=== PATIENT | male | born 1955 | race Caucasian/White ===

== ENCOUNTER 2021-02-23 13:14 | Emergency (ER) | payer MEDICAID ==
[~2021-02-23] VITALS: Ht 177.8 cm; Wt 86.4 kg
[2021-02-23 14:58] VITALS: BP 136/85
--- NOTE | 2021-02-23 15:25 | RAD ---
EXAM: Right foot, 3 views. HISTORY: Pain. COMPARISON: None. FINDINGS: 3 views of the right foot are obtained. There is mild degenerative spurring involving the f irst metatarsal phalangeal joint. No fracture is seen. There are vascular calcifications. IMPRESSION: 1. No acute osseous finding. 2. Mild first metatarsal phalangeal joint osteoarthritis. Electronically signed by: Lulu Bangura MD (02/23/2021 3:22 PM) [id number]
[2021-02-23] MEDS ORDERED: HYDROcodone/APAP 5/325MG 1 TAB TABLET PO ONE (16:00)
--- NOTE | 2021-02-23 16:07 | ED.ADGEN ---
Past Medical History Past Medical History: Dementia, Hypertension Past Surgical History: Other Additional Past Surgical Histo: BACK SURGERY Smoking Status: Never Smoker Alcohol Use: Occasionally General Adult EDM: Chief Complaint: MECHANICAL FALL HPI: HPI: Patient is a 66 year old male who presents emergency department with complaints of right foot and right great toe pain after falling down 5-7 stairs last night. Patient reports there is abrasions to his left great toe and left foot. He denies any LOC, head, back, or neck pain. Patient denies any nausea, vomiting. Numbness, tingling, or weakness. He currently rates his pain a 7 out of 10 on the pain scale, he denies any alleviating factors. Patient states his last tetanus shot was less than 5 years ago. Review of Systems: Review of Systems: Complete ROS is negative unless otherwise noted in HPI. Current Medications: Current Medications Medications (Trade) Dose Ordered Sig/Lora Start Time Stop Time Status Last Admin Dose Admin Acetaminophen/ Hydrocodone Bitart (Lortab 5/325) 1 tab 1X ONCE 02/23/21 16:00 02/23/21 16:01 DC 02/23/21 16:04 1 TAB Allergies: Allergies: Allergies Coded Allergies Type Severity Reaction Last Updated Verified No Known Drug Allergies 02/23/21 No Physical Exam: PE: See Above Constitutional: Well developed, well nourished, no acute distress, non-toxic appearance. [] HENT: Normocephalic, atraumatic, bilateral external ears normal, nose normal. [] Eyes: PERRLA, EOMI, conjunctiva normal, no discharge. [] Neck: Normal range of motion, no stridor. [] Cardiovascular:Heart rate regular rhythm Lungs & Thorax: Respirations even and unlabored, no retractions, no respiratory distress Abdomen: soft, no tenderness Back: No bony tenderness, no paraspinal tenderness Skin: Warm, dry, no erythema, no rash; scabbed abrasions to medial right Extremities: Right foot: Tenderness to palpation of the great toe and the first metatarsal, no crepitus, no deformity, 1+ edema, sensation intact, no cyanosis, ROM intact Neurologic: Alert and oriented X 3, normal motor normal sensory, no focal deficits noted. [] Psychologic: Affect normal, judgement normal, mood normal. [] Current Patient Data: Vital Signs: Vital Signs Date Time Temp Pulse Resp B/P (MAP) Pulse Ox O2 Delivery O2 Flow Rate FiO2 02/23/21 14:58 98.3 76 16 136/85 (102) 99 Room Air 98.3 EKG: EKG: [] Heart Score: C/O Chest Pain: No Risk Factors: Risk Factors: DM, Current or recent (<one month) smoker, HTN, HLP, family history of CAD, obesity. Risk Scores: Score 0 - 3: 2.5% MACE over next 6 weeks - Discharge Home Score 4 - 6: 20.3% MACE over next 6 weeks - Admit for Clinical Observation Score 7 - 10: 72.7% MACE over next 6 weeks - Early Invasive Strategies Radiology/Procedures: Radiology/Procedures: PROCEDURE: FOOT RIGHT 3V EXAM: Right foot, 3 views. HISTORY: Pain. COMPARISON: None. FINDINGS: 3 views of the right foot are obtained. There is mild degenerative spurring involving the first metatarsal phalangeal joint. No fracture is seen. There are vascular calcifications. IMPRESSION: 1. No acute osseous finding. 2. Mild first metatarsal phalangeal joint osteoarthritis. Electronically signed by: Lulu Bangura MD (02/23/2021 3:22 PM) [id number] Course & Med Decision Making: Course & Med Decision Making Pertinent Labs and Imaging studies reviewed. (See chart for details) [] Heaven Disclaimer: Heaven Disclaimer: This electronic medical record was generated, in whole or in part, using a voice recognition dictation system. Departure Departure Impression: Primary Impression: Contusion of right foot including toes Additional Impression: Abrasion, right foot, initial encounter Disposition: HOME / SELF CARE / HOMELESS Condition: STABLE Referrals: SATYA TYLER (PCP) Patient Instructions: Abrasion, [id number], Foot Contusion, [id number] Additional Instructions: Tylenol or ibuprofen as needed for pain recommend application of ice, elevation, and rest of affected extremity. Cleanse your abrasions and apply antibiotic ointment to them twice daily. Follow-up with your primary care doctor next week. Return to the ER if your symptoms worsen. Problem Qualifiers Primary Impression: Contusion of right foot including toes Encounter type: initial encounter Qualified Codes: S90.31XA - Contusion of right foot, initial encounter; S90.121A - Contusion of right lesser toe(s) without damage to nail, initial encounter KIRA MORE SOLUTION DESIGN ENGINEER February 23, 2021 16:07
== END 2021-02-23 16:32 | disposition home or self-care (01) ==
LOC: ER 13:14 → EDBD 13:14 → ER 16:32
DX: S90.31XA Contusion of right foot, initial encounter (principal); S90.121A Contusion of right lesser toe(s) without damage to nail, initial encounter; F03.90 Unspecified dementia, unspecified severity, without behavioral disturbance, psychotic disturbance, mood disturbance, and anxiety; I10 Essential (primary) hypertension; W10.8XXA Fall (on) (from) other stairs and steps, initial encounter; Y93.89 Activity, other specified; Y92.89 Other specified places as the place of occurrence of the external cause; Y99.8 Other external cause status
CPT/HCPCS: 73630; 99284

== ENCOUNTER 2021-03-07 21:50 | Emergency (ER) | payer MEDICAID ==
[~2021-03-07] VITALS: Ht 177.8 cm; Wt 85.9 kg
--- NOTE | 2021-03-07 23:12 | ED.ADGEN ---
Past Medical History Past Medical History: Dementia, Hypertension Past Surgical History: Other Additional Past Surgical Histo: BACK SURGERY Smoking Status: Never Smoker Alcohol Use: Occasionally General Adult EDM: Chief Complaint: NAUSEA/VOMITING/DIARRHEA HPI: HPI: Patient is a 65 year old male coming in for multiple complaints. Patient states he fell off of a bed of a pickup truck yesterday while trying to climb onto it. States he landed on his right side. Denies having abdominal pain, na usea and vomiting, fever of 102.4 by forehead. Patient got his second [place] vaccine 1 week ago and is concerned that he has Covid. Also request to be tested for influenza Review of Systems: Review of Systems: All other systems within normal limits except for as noted in the HPI Current Medications: Current Medications Medications (Trade) Dose Ordered Sig/Lora Start Time Stop Time Status Last Admin Dose Admin Info (CONTRAST GIVEN -- Rx MONITORING) 1 each PRN DAILY PRN 03/08/21 01:00 03/10/21 00:59 Iohexol (Omnipaque 300 Mg/ml) 75 ml 1X ONCE 03/08/21 01:30 03/08/21 01:31 DC Ondansetron HCl (Zofran) 4 mg 1X ONCE 03/07/21 23:30 03/07/21 23:31 DC Sodium Chloride 1,000 ml @ 1,000 mls/hr 1X ONCE 03/07/21 23:30 03/08/21 00:29 DC 03/07/21 23:52 1,000 MLS/HR Allergies: Allergies: Allergies Coded Allergies Type Severity Reaction Last Updated Verified No Known Drug Allergies 02/23/21 No Physical Exam: PE: Constitutional: Well developed, well nourished, no acute distress, non-toxic appearance. [] HENT: Normocephalic, atraumatic, bilateral external ears normal, nose normal. [] Eyes: PERRLA, conjunctiva normal, no discharge. [] Neck: No rigidity, supple, no stridor. No tenderness, no step-off or deformity [] Cardiovascular: Regular rate and rhythm, brisk cap refill [] Lungs & Thorax: Non labored symmetric respirations, no tachypnea or respiratory distress [] Abdomen: Soft, nondistended, generalized tenderness palpation no guarding or rebound. Skin: Warm, dry, no erythema, no rash. [] Back: Unremarkable Extremities: No deformities, range of motion grossly intact, no lower extremity edema [] Neurologic: Alert and oriented X 3, no focal deficits noted. [] Psychologic: Affect normal, judgement normal, mood normal. [] Current Patient Data: Labs: Laboratory Tests Test 03/07/21 23:40 03/07/21 23:50 03/08/21 00:55 Influenza Type A Antigen Negative (NEGATIVE) Influenza Type B Antigen Negative (NEGATIVE) SARS-CoV-2 Antigen (Rapid) Negative (NEGATIVE) White Blood Count 6.3 x10^3/uL (4.0-11.0) Red Blood Count 4.69 x10^6/uL (4.30-5.70) Hemoglobin 14.3 g/dL (13.0-17.5) Hematocrit 41.7 % (39.0-53.0) Mean Corpuscular Volume 89 fL (79-100) Mean Corpuscular Hemoglobin 31 pg (25-35) Mean Corpuscular Hemoglobin Concent 34 g/dL (31-37) Red Cell Distribution Width 13.9 % (11.5-14.5) Platelet Count 185 x10^3/uL (140-400) Neutrophils (%) (Auto) 62 % (31-73) Lymphocytes (%) (Auto) 21 % (24-48) L Monocytes (%) (Auto) 15 % (0-9) H Eosinophils (%) (Auto) 1 % (0-3) Basophils (%) (Auto) 1 % (0-3) Neutrophils # (Auto) 3.9 x10^3/uL (1.8-7.7) Lymphocytes # (Auto) 1.3 x10^3/uL (1.0-4.8) Monocytes # (Auto) 0.9 x10^3/uL (0.0-1.1) Eosinophils # (Auto) 0.1 x10^3/uL (0.0-0.7) Basophils # (Auto) 0.0 x10^3/uL (0.0-0.2) Sodium Level 133 mmol/L (136-145) L Potassium Level 4.3 mmol/L (3.5-5.1) Chloride Level 98 mmol/L (98-107) Carbon Dioxide Level 25 mmol/L (21-32) Anion Gap 10 (6-14) Blood Urea Nitrogen 13 mg/dL (8-26) Creatinine 1.1 mg/dL (0.7-1.3) Estimated GFR (Cockcroft-Gault) 67.6 BUN/Creatinine Ratio 12 (6-20) Glucose Level 109 mg/dL (70-99) H Calcium Level 9.4 mg/dL (8.5-10.1) Total Bilirubin 0.6 mg/dL (0.2-1.0) Aspartate Amino Transferase (AST) 33 U/L (15-37) Alanine Aminotransferase (ALT) 38 U/L (16-63) Alkaline Phosphatase 149 U/L (46-116) H Troponin I Quantitative < 0.017 ng/mL (0.000-0.055) Total Protein 7.1 g/dL (6.4-8.2) Albumin 3.7 g/dL (3.4-5.0) Albumin/Globulin Ratio 1.1 (1.0-1.7) Lipase 83 U/L (73-393) Urine Collection Type Unknown Urine Color Yellow Urine Clarity Clear Urine pH 6.0 (<5.0-8.0) Urine Specific Ragan 1.010 (1.000-1.030) Urine Protein Negative mg/dL (NEG-TRACE) Urine Glucose (UA) Negative mg/dL (NEG) Urine Ketones (Stick) Negative mg/dL (NEG) Urine Blood Trace (NEG) Urine Nitrite Negative (NEG) Urine Bilirubin Negative (NEG) Urine Urobilinogen Dipstick 0.2 mg/dL (0.2 mg/dL) Urine Leukocyte Esterase Negative (NEG) Urine RBC Rare /HPF (0-2) Urine WBC 0 /HPF (0-4) Urine Squamous Epithelial Cells Occ /LPF Urine Bacteria 0 /HPF (0-FEW) Laboratory Tests 03/07/21 23:50 Laboratory Tests 03/07/21 23:50 Vital Signs: Vital Signs Date Time Temp Pulse Resp B/P (MAP) Pulse Ox O2 Delivery O2 Flow Rate FiO2 03/08/21 00:05 92 22 99/64 (76) 98 Room Air 03/07/21 22:35 99.1 99.1 EKG: EKG: Sinus rhythm, heart rate 98 bpm, left axis deviation, no ST elevation or depression, no ectopy. Normal intervals [] Heart Score: C/O Chest Pain: No Risk Factors: Risk Factors: DM, Current or recent (<one month) smoker, HTN, HLP, family history of CAD, obesity. Risk Scores: Score 0 - 3: 2.5% MACE over next 6 weeks - Discharge Home Score 4 - 6: 20.3% MACE over next 6 weeks - Admit for Clinical Observation Score 7 - 10: 72.7% MACE over next 6 weeks - Early Invasive Strategies Radiology/Procedures: Radiology/Procedures: [facility] [address] [place] [address] IMAGING REPORT Signed PATIENT: LENNIE LINK ACCOUNT: [id number] : 1955 LOCATION: ER AGE: 65 SEX: M EXAM STATUS: REG ER ORD. PHYSICIAN: MARIA E HODGE MD REASON: head injury PROCEDURE: CT HEAD AND CERVICAL SPINE WO EXAM: CT HEAD WITHOUT IV CONTRAST CLINICAL HISTORY: Reason: head injury / Spl. Instructions: / History: COMPARISON: None. TECHNIQUE: Routine CT of the head without contrast. Soft tissues and bone windows were reviewed. PQRS compliance statement - One or more of the following individualized dose reduction techniques were utilized for this study: 1. Automated exposure control 2. Adjustment of the mA and/or kV according to patient size 3. Use of iterative reconstruction technique FINDINGS: There is no evidence of hemorrhage, mass or extra-axial fluid collection. Gomez-white differentiation is maintained with no evidence of edema. Subcortical, periventricular as well as deep white matter foci of hypoattenuation likely changes of chronic small vessel disease. There is no mass effect or shift of the intracranial structures. The ventricles, basilar cisterns and cortical sulci are normal in size and configuration for the patients stated age. The cerebellum and brainstem are unremarkable. The calvarium demonstrates no evidence of fracture or focal lesion. There is normal aeration of the visualized paranasal sinuses and mastoid air cells. The visualized portions of the orbits are normal. IMPRESSION: No evidence for acute intracranial process. White matter changes likely chronic small vessel disease. EXAM: CT CERVICAL SPINE WITHOUT IV CONTRAST CLINICAL HISTORY: Reason: head injury / Spl. Instructions: / History: COMPARISON: None available. TECHNIQUE: Helical CT of the cervical spine was performed. Axial, coronal and sagittal reformatted images were also performed. PQRS compliance statement - One or more of the following individualized dose reduction techniques were utilized for this study: 1. Automated exposure control 2. Adjustment of the mA and/or kV according to patient size 3. Use of iterative reconstruction technique FINDINGS: Trace height loss of the superior endplate of C5 may represent physiologic wedging or age-indeterminate compression fracture. This can be correlated with patient's symptoms and if further imaging is clinically indicated, MRI would provide additional details. Mild C2-3 disc height loss. Mild atlantodental degenerative changes are seen. Mild C6-7 disc height loss. Straightening of the normal cervical lordosis. No spondylolisthesis. Maxillary sinus thickening may be seen with sinusitis. IMPRESSION: 1. Trace height loss of the superior endplate of C5 may represent physiologic wedging or age-indeterminate compression fracture. If further imaging is clinically indicated, MRI may provide additional details. 2. Multilevel spondylosis as above 3. Maxillary sinus thickening may be seen with sinusitis.. Electronically signed by: Carl Ross MD (03/08/2021 1:10 AM) [facility] DICTATED and SIGNED BY: CARL ROSS MD DATE: 03/08/21 [id number] [][facility] [address] [place] [address] IMAGING REPORT Signed PATIENT: LENNIE LINK ACCOUNT: [id number] : 1955 LOCATION: ER AGE: 65 SEX: M EXAM STATUS: REG ER ORD. PHYSICIAN: MARIA E HODGE MD REASON: head injury PROCEDURE: CT CHEST ABD PELVIS W/CONTRAST EXAM: CT Chest, Abdomen and Pelvis with IV contrast CLINICAL HISTORY: Reason: head injury / Spl. Instructions: / History: COMPARISON: None. TECHNIQUE: Helical CT of the chest, abdomen and pelvis was performed following the administration of intravenous contrast. Axial, coronal and sagittal reformatted images were generated. ---PQRS compliance statement - One or more of the following individualized dose reduction techniques were utilized for this study: 1. Automated exposure control 2. Adjustment of the mA and/or kV according to patient size 3. Use of iterative reconstruction technique--- FINDINGS: Chest: Thyroid is unremarkable. Prominent subcarinal lymph node measures 1.6 x 1.1 cm. No mediastinal or hilar lymphadenopathy. Heart is not enlarged. Coronary calcifications are seen. No pericardial effusion. Thickening of the distal esophagus. No axillary lymphadenopathy. 12 mm left lower lobe lung nodule is seen. Linear and bandlike opacities or lobes likely scarring/atelectasis. A 1 cm right lower lobe lung nodule (series 2 image 39) is seen. No pleural effusion or pneumothorax. Abdomen and Pelvis: No focal liver lesion. Hepatic hypoattenuation likely fatty liver. Gallbladder is normal. No biliary duct dilatation. Pancreas is unremarkable. Spleen is normal in appearance. Adrenal glands are unremarkable. Symmetric nephrograms. No focal renal lesion. No hydronephrosis. No hydroureter. Bladder diverticula are seen. Aorta is normal in caliber with intermittent atherosclerotic calcifications. A 1.4 x 1.1 cm gastrohepatic ligament lymph node (series 2 image 55) is seen. Prominent right upper quadrant lymph nodes are seen. No abdominal or pelvic ascites. Appendix is normal. Moderate colonic stool content is seen. No small or large bowel dilatation. No bowel obstruction. Bones: Degenerative changes of spine are seen. Multiple old right rib fractures are seen. Mild height loss of T11 and T12 vertebral bodies, age-indeterminate compression fractures. IMPRESSION: 1. No evidence for acute thoracic, abdominal or pelvic trauma. 2. Distal esophageal thickening may be seen with esophagitis although underlying mass is not excluded. This can be further assessed by endoscopy. 3. Mildly enlarged mediastinal and upper abdominal lymph nodes, likely reactive or metastatic. 4. Mild height loss of T11 and T12 vertebral bodies, age-indeterminate compression fractures. 5. Bilateral lung nodules measuring up to 12 mm in the left lower lobe. Recommend correlation with prior imaging if available, otherwise further evaluation with PET scan or short interval follow-up CT in 6-12 weeks is recommended. 6. Hepatic hypoattenuation likely fatty liver. 7. Bladder diverticula are seen. Electronically signed by: Carl Ross MD (03/08/2021 1:19 AM) [facility] DICTATED and SIGNED BY: CARL ROSS MD DATE: 03/08/[id number] 0 Course & Med Decision Making: Course & Med Decision Making Pertinent Labs and Imaging studies reviewed. (See chart for details) [] Heaven Disclaimer: Heaven Disclaimer: This electronic medical record was generated, in whole or in part, using a voice recognition dictation system. Departure Departure Impression: Primary Impression: Nausea & vomiting Disposition: 01 HOME / SELF CARE / HOMELESS Condition: STABLE Referrals: SATYA TYLER (PCP) Additional Instructions: Follow-up with your primary care provider for incidental findings of lung nodules for repeat imaging. You have been tested for or diagnosed with COVID-19. It is an infection caused by a new type of coronavirus. COVID-19 will cause cold-like or mild flu symptoms in most. It can cause more severe symptoms like problems breathing in some. There is no treatment for COVID-19. The body will clear the infection over time. Self-care will help to ease discomfort. Steps to Take: Self-Care Rest as needed. Healthy habits may help you feel better. Steps include: Choose healthy foods including fruits and vegetables. Drink water throughout the day. Get plenty of sleep each night. If you smoke, try to quit. It may ease breathing. Avoid alcohol. Keep Others Healthy The virus can spread to others. Droplets are released every time you sneeze or cough. The droplets can get into the mouth, nose, or eyes of people near you and lead to infection. To lower the chances of spreading COVID-19 to others: Stay at home until your doctor has said it is safe to leave. If you tested positive this will mean staying isolated until both of the following are true: At least 7 days have passed since the start of illness. You are free of fever for at least 72 hours without the use of medicine. During this time: - Avoid public areas, events, or transportation. Do not return to work or school until your doctor has said it is safe to do so. - Call ahead if you need to go to a medical center. Let them know you may have COVID-19. It will help them guide you where to go. They may also ask you to wear a facemask when you come to the office. - If you call for emergency medical services, let them know you may have COVID- 19. While at home: - Try to avoid close contact with others. Stay about 6 feet away. - If possible, spend most of your time in a separate room from others. - Use a face mask if you will be in close contact with others such as sharing a room or vehicle. - Have someone wipe down common surfaces in the home. Use household senior applications developer every day on areas like doorknobs, counters, or sinks. - Cough or sneeze into a tissue. Throw the tissue away right after use. If a tissue is not available, cough or sneeze into your elbow. - Wash your hands often. Wash them after sneezing or coughing. Use soap and water and wash for at least 20 seconds. Alcohol based hand frame cleaner can be used if soap and water is not available. - Do not prepare food for others. Avoid sharing personal items like forks, spoons, or toothbrushes. - Avoid close contact with pets while you are sick. There is no evidence of the virus passing to pets. This is a safety step until more is known about this virus. Isolation can be frustrating. Social interaction can help. Keep in touch with friends and family through phone and tech options. You can still interact with others in your home, just keep a safe distance of about 6 feet. Follow-up: Your doctors office will check in with you to see if there are any changes in your health. You may be asked to keep track of symptoms to share with them. They will also let you know when you are clear to be in public again. Problems to Look Out For: Contact your doctor if your recovery is not going as you expect. Get emergency care if you have problems such as: - Trouble breathing - Nonstop chest pain or pressure - Changes in awareness, confusion, or problems waking - Lips or face have bluish color - Worsening of symptoms If you think you have an emergency, call for emergency medical services right away. As taken from [facility] Ondansetron (ONDANSETRON ODT) 4 Mg Tab.rapdis 1 TAB PO PRN Q6-8HRS PRN for NAUSEA for 3 Days, #10 TAB Prov: MARIA E HODGE MD 03/08/21 MARIA E HODGE MD Mar 07, 2021 23:12
[2021-03-07] MEDS ORDERED: ONDANSETRON PF 4 MG/2 ML VIAL. IVP ONE (23:30)
[2021-03-07] MEDS ORDERED: IV NORMAL SALINE 1000ML BAG 1,000 ML IV ONE (23:30)
[2021-03-08 00:01] LABS: BASO % 1 % (0-3); EOS # 0.1 x10^3/uL (0.0-0.7); EOS % 1 % (0-3); HEMATOCRIT 41.7 % (39.0-53.0); HEMOGLOBIN 14.3 g/dL (13.0-17.5); LYMPH # 1.3 x10^3/uL (1.0-4.8); LYMPH % 21 % (24-48); MEAN CORPUSCULAR HEMOGLOBIN 31 pg (25-35); MEAN CORPUSCULAR HGB CONC 34 g/dL (31-37); MEAN CORPUSCULAR VOLUME 89 fL (79-100); MONO # 0.9 x10^3/uL (0.0-1.1); MONO % 15 % (0-9); NEUT # 3.9 x10^3/uL (1.8-7.7); NEUT % 62 % (31-73); PLATELET COUNT 185 x10^3/uL (140-400); RED BLOOD COUNT 4.69 x10^6/uL (4.30-5.70); RED CELL DISTRIBUTION WIDTH 13.9 % (11.5-14.5); WHITE BLOOD COUNT 6.3 x10^3/uL (4.0-11.0)
[2021-03-08 00:02] LABS: INFLUENZA A PATIENT NEGATIVE (NEGATIVE); INFLUENZA B PATIENT NEGATIVE (NEGATIVE)
[2021-03-08 00:12] LABS: CALCIUM 9.4 mg/dL (8.5-10.1); CREATININE 1.1 mg/dL (0.7-1.3); GFR 67.6; POTASSIUM 4.3 mmol/L (3.5-5.1)
[2021-03-08 00:17] LABS: ALBUMIN 3.7 g/dL (3.4-5.0); ALBUMIN/GLOBULIN RATIO 1.1 (1.0-1.7); TOTAL BILIRUBIN 0.6 mg/dL (0.2-1.0); TOTAL PROTEIN 7.1 g/dL (6.4-8.2)
[2021-03-08] MEDS ORDERED: CONTRAST GIVEN. MC PRN (01:00)
[2021-03-08 01:02] LABS: BILIRUBIN,URINE NEGATIVE (NEG); CLARITY,URINE CLEAR; COLOR,URINE YELLOW; NITRITE,URINE NEGATIVE (NEG); PROTEIN,URINE NEGATIVE (NEG-TRACE); UROBILINOGEN,URINE 0.2 mg/dL (0.2 mg/dL)
--- NOTE | 2021-03-08 01:12 | RAD ---
EXAM: CT HEAD WITHOUT IV CONTRAST CLINICAL HISTORY: Reason: head injury / Spl. Instructions: / History: COMPARISON: None. TECHNIQUE: Routine CT of the head without contrast. Soft tissues and bone windows were reviewed. PQRS compliance statement - One or more of the following individualized dose reduction techniques wer e utilized for this study: 1. Automated exposure control 2. Adjustment of the mA and/or kV according to patient size 3. Use of iterative reconstruction technique FINDINGS: There is no evidence of hemorrhage, mass or extra-axial fluid collection. Gomez-white differentiation is maintained with no evidence of edema. Subcortical, periventricular as w ell as deep white matter foci of hypoattenuation likely changes of chronic small vessel disease. There is no mass effect or shift of the intracranial structures. The ventricles, basilar cisterns and cortical sulci are normal in size and configuration for the radha ents stated age. The cerebellum and brainstem are unremarkable. The calvarium demonstrates no evidence of fracture or focal lesion. There is normal aeration of the visualized paranasal sinuses and mastoid air cells. The visualized portions of the orbits are normal. IMPRESSION: No evidence for acute intracranial process. White matter changes likely chronic small vessel disease. EXAM: CT CERVICAL SPINE WITHOUT IV CONTRAST CLINICAL HISTORY: Reason: head injury / Spl. Instructions: / History: COMPARISON: None available. TECHNIQUE: Helical CT of the cervical spine was performed. Axial, coronal and sagittal reformatted im ages were also performed. PQRS compliance statement - One or more of the following individualized dose reduction techniques wer e utilized for this study: 1. Automated exposure control 2. Adjustment of the mA and/or kV according to patient size 3. Use of iterative reconstruction technique FINDINGS: Trace height loss of the superior endplate of C5 may represent physiologic wedging or age-indetermina te compression fracture. This can be correlated with patient's symptoms and if further imaging is cli nically indicated, MRI would provide additional details. Mild C2-3 disc height loss. Mild atlantodental degenerative changes are seen. Mild C6-7 disc height l oss. Straightening of the normal cervical lordosis. No spondylolisthesis. Maxillary sinus thickening may be seen with sinusitis. IMPRESSION: 1. Trace height loss of the superior endplate of C5 may represent physiologic wedging or age-indeter minate compression fracture. If further imaging is clinically indicated, MRI may provide additional d etails. 2. Multilevel spondylosis as above 3. Maxillary sinus thickening may be seen with sinusitis.. Electronically signed by: Carl Mejias MD (03/08/2021 1:10 AM) [facility]
[2021-03-08 01:19] LABS: BACTERIA,URINE 0 /HPF (0-FEW); RBC,URINE RARE /HPF (0-2); WBC,URINE 0 /HPF (0-4)
--- NOTE | 2021-03-08 01:21 | RAD ---
EXAM: CT Chest, Abdomen and Pelvis with IV contrast CLINICAL HISTORY: Reason: head injury / Spl. Instructions: / History: COMPARISON: None. TECHNIQUE: Helical CT of the chest, abdomen and pelvis was performed following the administration of intravenous contrast. Axial, coronal and sagittal reformatted images were generated. ---PQRS compliance statement - One or more of the following individualized dose reduction techniques were utilized for this study: 1. Automated exposure control 2. Adjustment of the mA and/or kV according to patient size 3. Use of iterative reconstruction technique--- FINDINGS: Chest: Thyroid is unremarkable. Prominent subcarinal lymph node measures 1.6 x 1.1 cm. No mediastinal or hil ar lymphadenopathy. Heart is not enlarged. Coronary calcifications are seen. No pericardial effusion. Thickening of the distal esophagus. No axillary lymphadenopathy. 12 mm left lower lobe lung nodule i s seen. Linear and bandlike opacities or lobes likely scarring/atelectasis. A 1 cm right lower lobe l seema nodule (series 2 image 39) is seen. No pleural effusion or pneumothorax. Abdomen and Pelvis: No focal liver lesion. Hepatic hypoattenuation likely fatty liver. Gallbladder is normal. No biliary duct dilatation. Pancreas is unremarkable. Spleen is normal in appearance. Adrenal glands are unremar kable. Symmetric nephrograms. No focal renal lesion. No hydronephrosis. No hydroureter. Bladder diver ticula are seen. Aorta is normal in caliber with intermittent atherosclerotic calcifications. A 1.4 x 1.1 cm gastrohep atic ligament lymph node (series 2 image 55) is seen. Prominent right upper quadrant lymph nodes are seen. No abdominal or pelvic ascites. Appendix is normal. Moderate colonic stool content is seen. No small or large bowel dilatation. No ama wel obstruction. Bones: Degenerative changes of spine are seen. Multiple old right rib fractures are seen. Mild height loss of T11 and T12 vertebral bodies, age-indeterminate compression fractures. IMPRESSION: 1. No evidence for acute thoracic, abdominal or pelvic trauma. 2. Distal esophageal thickening may be seen with esophagitis although underlying mass is not exclude d. This can be further assessed by endoscopy. 3. Mildly enlarged mediastinal and upper abdominal lymph nodes, likely reactive or metastatic. 4. Mild height loss of T11 and T12 vertebral bodies, age-indeterminate compression fractures. 5. Bilateral lung nodules measuring up to 12 mm in the left lower lobe. Recommend correlation with p rior imaging if available, otherwise further evaluation with PET scan or short interval follow-up CT in 6-12 weeks is recommended. 6. Hepatic hypoattenuation likely fatty liver. 7. Bladder diverticula are seen. Electronically signed by: Carl Mejias MD (03/08/2021 1:19 AM) DAXA
[2021-03-08] MEDS ORDERED: IOHEXOL 300 MG/ML 100ML VIAL. IV ONE (01:30)
[2021-03-08] MEDS ORDERED: ONDA4TAB12 PO (01:39)
[2021-03-08 01:50] VITALS: BP 139/81
--- NOTE | 2021-03-08 08:59 | EKG ---
[facility] [address] [place] [address] Test Date: 2021-03-07 Test Time: 23:33:31 Pat Name: LENNIE LINK Department: Room: Gender: M Building [employer] Sales[employer] Retail: : 1955 Requested By: MARIA E HODGE Order Number: [id number] Reading MD: Measurements Intervals [place] Rate: 98 P: 40 MD: 162 QRS: -18 QRSD: 90 T: 24 QT: 344 QTc: 441 Interpretive Statements SINUS RHYTHM LEFTWARD AXIS NO SPECIFIC ECG ABNORMALITIES RI6.01 No previous ECG available for comparison
--- NOTE | 2021-03-09 09:28 | NUR ---
IP: Attempted to contact pt concerning covid test. No answer, left a voicemail to return the call.
--- NOTE | 2021-03-09 09:47 | NUR ---
IP: Pt returned my call. Informed pt of negative covid test. Pt verbalized understanding.
== END 2021-03-08 01:55 | disposition home or self-care (01) ==
LOC: ER 21:50
DX: R11.2 Nausea with vomiting, unspecified (principal); G89.11 Acute pain due to trauma; M54.2 Cervicalgia; R51.9 Headache, unspecified; R10.84 Generalized abdominal pain; I10 Essential (primary) hypertension; F03.90 Unspecified dementia, unspecified severity, without behavioral disturbance, psychotic disturbance, mood disturbance, and anxiety; M47.812 Spondylosis without myelopathy or radiculopathy, cervical region; W06.XXXA Fall from bed, initial encounter; Y93.89 Activity, other specified; Y92.89 Other specified places as the place of occurrence of the external cause; Y99.8 Other external cause status
CPT/HCPCS: 36415; 70450; 71260; 72125; 74177; 80053; 81001; 83690; 84484; 85025; 87426; 87804; 93005; 96360; 99285; J7030; U0003; U0005

== ENCOUNTER 2021-08-26 13:15 | Emergency (ER) | payer MEDICAID ==
[~2021-08-26] VITALS: Ht 177.8 cm; Wt 86.0 kg
[~2021-08-26 13:15] MED LIST: ONDA4TAB12 PO
[2021-08-26 13:41] LABS: BASO % 1 % (0-3); EOS # 0.1 x10^3/uL (0.0-0.7); EOS % 3 % (0-3); HEMATOCRIT 41.9 % (39.0-53.0); HEMOGLOBIN 14.3 g/dL (13.0-17.5); LYMPH % 39 % (24-48); MEAN CORPUSCULAR HEMOGLOBIN 31 pg (25-35); MEAN CORPUSCULAR HGB CONC 34 g/dL (31-37); MEAN CORPUSCULAR VOLUME 92 fL (79-100); MONO # 0.6 x10^3/uL (0.0-1.1); MONO % 11 % (0-9); NEUT # 2.5 x10^3/uL (1.8-7.7); NEUT % 47 % (31-73); PLATELET COUNT 190 x10^3/uL (140-400); RED BLOOD COUNT 4.58 x10^6/uL (4.30-5.70); RED CELL DISTRIBUTION WIDTH 13.5 % (11.5-14.5); WHITE BLOOD COUNT 5.3 x10^3/uL (4.0-11.0)
[2021-08-26] MEDS ORDERED: ONDANSETRON PF 4 MG/2 ML VIAL. IVP ONE ×2 (13:45→18:00)
--- NOTE | 2021-08-26 13:55 | RAD ---
EXAMINATION: Single view of the chest and 2 views of the right hip radiographs COMPARISON: CT chest dated 03/25/2021 INDICATION:66 years, Male, fall from seizure, right hip pain. FINDINGS: Chest: Normal cardiomediastinal silhouette. Left basilar subsegmental atelectasis versus scar. No foc al consolidation. No pleural effusion or pneumothorax. No acute osseous process. Chronic right latera l sixth and seventh rib fractures. Right hip: No acute fracture, dislocation or subluxation. Moderate right hip and sacroiliac joints os teoarthritis. No soft tissue swelling. IMPRESSION: 1. No acute cardiopulmonary process. 2. No acute osseous process in the right hip Electronically signed by: Melissa Bergeron MD (08/26/2021 1:53 PM) [id number]
--- NOTE | 2021-08-26 14:22 | PHYS DOC ---
Past Medical History Past Medical History: Dementia, Hypertension Past Surgical History: Other Additional Past Surgical Histo: unknown Smoking Status: Never Smoker Alcohol Use: None General Adult EDM: Chief Complaint: SEIZURE HPI: HPI: Patient is a 66-year-old male presents to the emergency department via EMS for a reported seizure at work today. EMS unable to report length of seizure or if witnessed. 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 Patient does not remember events afterward until EMS arrived at his work. Patient did not lose continence, reports he has both petit mall and grand mal seizures however he feels as if this may have been a petit mall because he is becoming oriented very quickly. Patient denies dizziness, denies headaches. Denies recent fever or chills. Is unsure if he hit his head or not however denies any head or neck pain. Reports pain to his right hip. Rates his pain a 2-3 out of 10. Patient reports a past medical history of seizures, high blood pressure, hypothyroid, Alzheimer's dementia, chronic body aches and pains. Patient denies chest pain, shortness of breath, chest or nasal congestion, denies recent illnesses, reports his last seizure was May 212020. Patient reports seeing physicians at [facility], reports his neurologist is Dr. Michelet Cao. Patient denies other phy sical complaints or physical concerns. Review of Systems: Review of Systems: 14 body systems of review of systems have been reviewed. See HPI for pertinent positives and negative responses, otherwise all other systems are negative, nonpertinent or noncontributory. Constitutional: Negative except as outlined in HPI above. Skin: Negative except as outlined in HPI above. Eyes: Negative except as outlined in HPI above. HENT: Negative except as outlined in HPI above. Respiratory: Negative except as outlined in HPI above. Cardiovascular: Negative except as outlined in HPI above. GI: Negative except as outlined in HPI above. : Negative except as outlined in HPI above. Musculoskeletal: Negative except as outlined in HPI above. Integument: Negative except as outlined in HPI above. Neurologic: Negative except as outlined in HPI above. Endocrine: Negative except as outlined in HPI above. Lymphatic: Negative except as outlined in HPI above. Psychiatric: Negative except as outlined in HPI above. Heart Score: C/O Chest Pain: No Risk Factors: Risk Factors: DM, Current or recent (<one month) smoker, HTN, HLP, family history of CAD, obesity. Risk Scores: Score 0 - 3: 2.5% MACE over next 6 weeks - Discharge Home Score 4 - 6: 20.3% MACE over next 6 weeks - Admit for Clinical Observation Score 7 - 10: 72.7% MACE over next 6 weeks - Early Invasive Strategies Current Medications: Reported current medications by patient's daughter as follows: Vitamin D supplement daily, Pepcid 40 mg daily, such as eating 10 mg daily, potassium chloride 20 mEq daily, gabapentin 300 mg a.m. and afternoon with 600 mg in evening, lorazepam 2 mg every morning and p.m., metoprolol 25 mg daily, donepezil 5 mg daily, divalproex 500 mg daily, simvastatin 40 mg daily, quetiapine 200 mg daily, vitamin B complex daily, tramadol 50 mg twice daily. Current Medications Medications (Trade) Dose Ordered Sig/Lora Start Time Stop Time Status Last Admin Dose Admin Ondansetron HCl (Zofran) 4 mg 1X ONCE 08/26/21 13:45 08/26/21 13:46 DC 08/26/21 13:59 4 MG Allergies: Allergies: Allergies Coded Allergies Type Severity Reaction Last Updated Verified No Known Drug Allergies 02/23/21 No Physical Exam: PE: Constitutional: Well developed, well nourished, no acute distress, non-toxic appearance. 66-year-old male in no apparent distress. HENT: Normocephalic, atraumatic. No malocclusion, no trismus, bilateral TMs w ithin normal limits, intact, no drainage from bilateral external auditory canals, no aburto's sign, no raccoon eyes sign, patient speaking in normal voice tones, no trismus, no drooling. Eyes: Conjunctiva normal, no discharge. PERRLA, satisfactory 6 cardinal eye movements. Neck: Normal range of motion, no stridor. No nuchal rigidity, no meningismus signs Cardiovascular: No cyanosis appreciated, distal cap refill less than 2 seconds. Regular rate and rhythm. Lungs & Thorax: Patient is in no respiratory distress, no audible adventitious lung sounds appreciated. Normal work of breathing, no adventitious lung sounds appreciated for auscultation all lung flor. Abdomen: Nontender, no abnormalities noted. Skin: Warm, dry, no erythema, no rash. Patient diaphoretic. Back: No tenderness, no deformities. Extremities: No tenderness, no cyanosis, no clubbing, ROM intact, no edema. Except for right hip, pain to palpation, no other pelvic pain appreciated, pelvis intact, no crepitus appreciated, limited passive range of motion of hip on the right related to pain, increases with palpation and movement, decreases with no movement and no palpation, no external rotation or shortening of the right lower extremity, 2+ dorsalis pedis/posterior tibial pulses bilaterally, distal cap refill less than 2 seconds bilateral lower extremities.. Neurologic: Alert and oriented X 3, normal motor function, normal sensory function, no focal deficits noted. Psychologic: Affect normal, judgement normal, mood normal. Current Patient Data: Labs: Laboratory Tests Test 08/26/21 13:30 White Blood Count 5.3 x10^3/uL (4.0-11.0) Red Blood Count 4.58 x10^6/uL (4.30-5.70) Hemoglobin 14.3 g/dL (13.0-17.5) Hematocrit 41.9 % (39.0-53.0) Mean Corpuscular Volume 92 fL (79-100) Mean Corpuscular Hemoglobin 31 pg (25-35) Mean Corpuscular Hemoglobin Concent 34 g/dL (31-37) Red Cell Distribution Width 13.5 % (11.5-14.5) Platelet Count 190 x10^3/uL (140-400) Neutrophils (%) (Auto) 47 % (31-73) Lymphocytes (%) (Auto) 39 % (24-48) Monocytes (%) (Auto) 11 % (0-9) H Eosinophils (%) (Auto) 3 % (0-3) Basophils (%) (Auto) 1 % (0-3) Neutrophils # (Auto) 2.5 x10^3/uL (1.8-7.7) Lymphocytes # (Auto) 2.0 x10^3/uL (1.0-4.8) Monocytes # (Auto) 0.6 x10^3/uL (0.0-1.1) Eosinophils # (Auto) 0.1 x10^3/uL (0.0-0.7) Basophils # (Auto) 0.0 x10^3/uL (0.0-0.2) Troponin I High Sensitivity 5 ng/L (4-75) Laboratory Tests 08/26/21 13:30 Vital Signs: Vital Signs Date Time Temp Pulse Resp B/P (MAP) Pulse Ox O2 Delivery O2 Flow Rate FiO2 08/26/21 13:20 98.2 94 15 141/70 (93) 98 Room Air 98.2 EKG: EKG: EKG performed at 1333 by ED nursing staff shows a normal sinus rhythm with a leftward axis deviation, no other ectopy, heart rate 83 bpm, CO interval 0.176, QTc interval 0.455, no acute STEMI, no ACS, no acute ischemia appreciated, EKG interpreted by ED attending physician Dr. Parson. Radiology/Procedures: Radiology/Procedures: REASON: Fall from seizure, right hip pain PROCEDURE: HIP RIGHT 2V WITH PELVIS EXAMINATION: Single view of the chest and 2 views of the right hip radiographs COMPARISON: CT chest dated 03/25/2021 INDICATION:66 years, Male, fall from seizure, right hip pain. FINDINGS: Chest: Normal cardiomediastinal silhouette. Left basilar subsegmental atelectasis versus scar. No focal consolidation. No pleural effusion or pneumothorax. No acute osseous process. Chronic right lateral sixth and seventh rib fractures. Right hip: No acute fracture, dislocation or subluxation. Moderate right hip and sacroiliac joints osteoarthritis. No soft tissue swelling. IMPRESSION: 1. No acute cardiopulmonary process. 2. No acute osseous process in the right hip Electronically signed by: Melissa Bergeron MD (08/26/2021 1:53 PM) [id number] STATUS: PRE ER ORD. PHYSICIAN: AGUILAR BUENO APRN REASON: Seizure, diaphoresis PROCEDURE: CT HEAD AND CERVICAL SPINE WO EXAMINATION: CT HEAD AND C-SPINE WO CLINICAL HISTORY: Seizure, diaphoresis TECHNIQUE: Serial axial images without IV contrast were obtained from the vertex to the foramen magnum. CT of the cervical spine without IV contrast. Spiral, high resolution axial images were obtained from the skull base to the cervicothoracic junction with sagittal and coronal planar reconstructions. CT Dose Reduction Employed: One or more of the following individualized dose reduction techniques were utilized for this examination: 1. Automated exposure control 2. Adjustment of the mA and/or kV according to patient size 3. Use of iterative reconstruction technique. COMPARISON: 03/08/2021 FINDINGS: BRAIN: Acute Change: No evidence of an acute contusion or other acute parenchymal process. Hemorrhage: No evidence of acute intracranial hemorrhage. Mass Lesion/Mass Effect: No evidence of intracranial mass or extraaxial fluid collection. No significant mass effect. Chronic Change: Scattered patchy foci of hypoattenuation in the supratentorial white matter, nonspecific but likely represents mild microvascular ischemia. Atherosclerotic calcification of the intracranial portion of the bilateral internal carotid arteries. Parenchyma: Mild to moderate generalized volume loss. Ventricles: Ventricular enlargement concordant with degree of parenchymal volume loss. Paranasal Sinuses and Skull Base: Visualized paranasal sinuses clear. No evidence of acute calvarial fracture. C-SPINE: Alignment: Normal anatomic alignment. Osseous Structures: No evidence of acute fracture or spondylolisthesis. Degenerative Changes: Mild to moderate multilevel degenerative disc disease and neural foraminal narrowing, greatest in the lower cervical spine. No evidence of high-grade osseous spinal stenosis. Multilevel facet arthropathy. Cervical Soft Tissues: No prevertebral soft tissue swelling. Vascular calcifications. IMPRESSION: BRAIN: No evidence of acute intracranial abnormality. C-SPINE: No evidence of acute osseous abnormality involving the cervical spine. Multilevel degenerative findings as described. Electronically signed by: Nael Davis DO (08/26/2021 2:50 PM) [facility] PROCEDURE: CHEST AP ONLY EXAMINATION: Single view of the chest and 2 views of the right hip radiographs COMPARISON: CT chest dated 03/25/2021 INDICATION:66 years, Male, fall from seizure, right hip pain. FINDINGS: Chest: Normal cardiomediastinal silhouette. Left basilar subsegmental atelectasis versus scar. No focal consolidation. No pleural effusion or pneumothorax. No acute osseous process. Chronic right lateral sixth and seventh rib fractures. Right hip: No acute fracture, dislocation or subluxation. Moderate right hip and sacroiliac joints osteoarthritis. No soft tissue swelling. IMPRESSION: 1. No acute cardiopulmonary process. 2. No acute osseous process in the right hip Electronically signed by: Melissa Bergeron MD (08/26/2021 1:53 PM) [id number] Course & Med Decision Making: Course & Med Decision Making Pertinent Labs and Imaging studies reviewed. (See chart for details) 66-year-old male, vital signs reviewed, presents emergency department concerning a seizure while at work just prior to arrival to the ER. Unknown if seizure was witnessed, unknown seizure type, EMS did not give this and report. Patient's physical examination in a current mild postictal state, patient takes a period of time to remember his physicians and medications. Patient did not lose urinary or bowel continence from reported seizure. Otherwise patient is alert and oriented x3. Will order CT head and C-spine, x-ray imaging of right hip and pelvis, CBC, CMP, troponin I, EKG, BNP, valproic acid level we will monitor patient. Seizure precautions. Will reevaluate after period of time. Patient is EKG unremarkable. Upon reevaluation of the patient and review of EKG findings, patient is no longer diaphoretic. Patient states he feels much better and more alert now. CT and x-ray imaging negative for fracture or acute process, CMP and urinalysis assay still pending patient valproic acid level 18, concerning for subtherapeutic level, upon reevaluation of the patient to discuss valproic acid level along with CT and x-ray imaging, family at bedside report that patient's seizures started on May 21, patient has a history of alcoholism, has been alcohol free since May 21, 2021. This is his second reported seizure. Sees a neurologist, recently started on valproate 500 mg 1 month ago, has not been reevaluated since. Patient CMP and urinalysis are unremarkable. Discussed all findings with patient, ice packs to the sore area 30 minutes on and 30 minutes off while awake for the next 48 to 72 hours. Strict follow-up with neurologist on Friday, discussed with patient will give valproic acid level on discharge instructions to review with his neurologist. Return to ER precautions and concerns. Continue to use tramadol along with NSAID therapy for ongoing pain and chronic pains. With patient's family Bhavana humphrey patient's long history of alcoholism, and alcohol level was drawn today, serum EtOH level negative. Patient is amenable to and gave verbal understanding of discharge ED instructions. Diagnosis seizure, unknown etiology. Patient remains in no apparent distress, nontoxic in appearance, alert and oriented x3. There were no further seizure- like activity during his ER stay. Discussed with the patient all findings and diagnostic testing as well as the need to follow-up with their primary care provider for further evaluation and treatment or return to the ED if any new or worsening symptoms. Strict return precautions were also discussed at length, the patient voiced understanding and agreement with the discharge planning. The patient was nontoxic in appearance, in no apparent distress, and hemodynamically stable at the time of disposition. Dragon Disclaimer: Dragon Disclaimer: This electronic medical record was generated, in whole or in part, using a voice recognition dictation system. Departure Departure Impression: Primary Impression: Seizure-like activity Disposition: HOME / SELF CARE / HOMELESS Condition: GOOD Referrals: SATYA TYLER (PCP) Patient Instructions: Seizure, Adult Additional Instructions: You were seen today in the emergency department for reported seizure while you are at work today. You had complained of right hip pain after your seizure. You were given pain medications today in the emergency department. A CT scan of your head and cervical/neck was performed today, there were no concerning signs as reported by a radiologist interpretation. The x-ray of your right hip and pelvis did not show any signs of fracture. Your chest x-ray did not show any signs of aspiration pneumonia. Your lab work and urinalysis were unremarkable except for your valproic acid level equals 18. This may be considered subtherapeutic however please follow your direction given by your neurologist. Please call your neurologist on Friday to tell them of this level that was drawn today. Please keep all future appointments with your neurologist and primary care physician. Return to the emergency department for worsening symptoms or other concerns. Please call your primary care physician this Friday to let them know of your increased pains as they may change your pain medication regimen at home. Thank you for visiting our Emergency Department. It was a pleasure taking care of you today in the emergency department and we appreciate you trusting us with your care. If any additional problems come up don't hesitate to return to visit us. Please follow up with your primary care provider so they can plan additional care if needed and know about the problem that you had. If symptoms worsen come back to the Emergency Department. Any concerning symptoms that start such as chest pain, shortness of air, weakness or numbness on one side of the body, running high fevers or any other concerning symptoms return to the ER. EMERGENCY DEPARTMENT GENERAL DISCHARGE INSTRUCTIONS Thank you for coming to [facility] Emergency Department (ED) today and trusting us with you care. We trust that you had a positive experience in our Emergency Department. If you wish to speak to the department management, you may call the Director at [phone]. YOUR FOLLOW UP INSTRUCTIONS ARE FOLLOWS: 1. Do you have a private Doctor? If you do not have a private doctor, please ask for a resource list of physicians or clinics that may be able to assist you with follow up care. 2. The Emergency Physicain has interpreted your x-rays. The X-Ray specialist will also review them. If there is a change in the findings, you will be notified in 48 hours when at all possible. 3. A lab test or culture has been done, your results will be reviewed and you will be notified if you need a change in treatment. ADDITIONAL INSTRUCTIONS AND INFORMATION: 1. Your care today has been supervised by a physician who is specially trained in emergency care. Many problems require more than one evaluation for a complete diagnosis and treatment. We recommend that you schedule your follow up appointment as recommended to ensure complete treatment of you illness or injury. If you are unable to obtain follow up care and continue to have a problem, or if your condition worsens, we recommend that you return to the ED. 2. We are not able to safely determine your condition over the phone nor are we able to give sound medical advice over the phone. For these safety reasons, if you call for medical advice we will ask you to come to the ED for further evaluation. 3. If you have any questions regarding these discharge instructions please call the ED at [phone]. SAFETY INFORMATION: In the interest of safety, wellness, and injury prevention; we encourage you to wear your sealbelt, if you smoke; quite smoking, and we encourage family to use a protective helmet for bicycling and other sporting events that present an increased risk for head injury. IF YOUR SYMPTOMS WORSEN OR NEW SYMPTOMS DEVELOP, OR YOU HAVE CONCERNS ABOUT YOUR CONDITION; OR IF YOUR CONDITION WORSENS WHILE YOU ARE WAITING FOR YOUR FOLLOW UP APPOINTMENT; EITHER CONTACT YOUR PRIMARY CARE DOCTOR, THE PHYSICIAN WHOSE NAME AND NUMBER YOU WERE GIVEN, OR RETURN TO THE ED IMMEDIATELY. AGUILAR BUENO APRN Aug 26, 2021 14:22
[2021-08-26 14:24] LABS: VAL ACID 18 mcg/mL (50-100)
--- NOTE | 2021-08-26 14:52 | RAD ---
EXAMINATION: CT HEAD AND C-SPINE WO CLINICAL HISTORY: Seizure, diaphoresis TECHNIQUE: Serial axial images without IV contrast were obtained from the vertex to the foramen magnum. CT of the cervical spine without IV contrast. Spiral, high resolution axial images were obtained from the skull base to the cervicothoracic junction with sagittal and coronal planar reconstructions. CT Dose Reduction Employed: One or more of the following individualized dose reduction techniques wer e utilized for this examination: 1. Automated exposure control 2. Adjustment of the mA and/or kV ac cording to patient size 3. Use of iterative reconstruction technique. COMPARISON: 03/08/2021 FINDINGS: BRAIN: Acute Change: No evidence of an acute contusion or other acute parenchymal process. Hemorrhage: No evidence of acute intracranial hemorrhage. Mass Lesion/Mass Effect: No evidence of intracranial mass or extraaxial fluid collection. No signific ant mass effect. Chronic Change: Scattered patchy foci of hypoattenuation in the supratentorial white matter, nonspeci fic but likely represents mild microvascular ischemia. Atherosclerotic calcification of the intracran ial portion of the bilateral internal carotid arteries. Parenchyma: Mild to moderate generalized volume loss. Ventricles: Ventricular enlargement concordant with degree of parenchymal volume loss. Paranasal Sinuses and Skull Base: Visualized paranasal sinuses clear. No evidence of acute calvarial fracture. C-SPINE: Alignment: Normal anatomic alignment. Osseous Structures: No evidence of acute fracture or spondylolisthesis. Degenerative Changes: Mild to moderate multilevel degenerative disc disease and neural foraminal narr owing, greatest in the lower cervical spine. No evidence of high-grade osseous spinal stenosis. Multi level facet arthropathy. Cervical Soft Tissues: No prevertebral soft tissue swelling. Vascular calcifications. IMPRESSION: BRAIN: No evidence of acute intracranial abnormality. C-SPINE: No evidence of acute osseous abnormality involving the cervical spine. Multilevel degenerative findings as described. Electronically signed by: Nael Davis DO (08/26/2021 2:50 PM) [facility]
[2021-08-26 15:14] LABS: CREATININE 1.3 mg/dL (0.7-1.3); GFR 55.6
[2021-08-26 15:22] LABS: ALBUMIN 3.8 g/dL (3.4-5.0); TOTAL BILIRUBIN 0.4 mg/dL (0.2-1.0); TOTAL PROTEIN 7.7 g/dL (6.4-8.2)
[2021-08-26] MEDS ORDERED: fentaNYL PF VIAL 100 MCG/2 ML VIAL IVP ONE (15:45)
[2021-08-26 17:13] LABS: BILIRUBIN,URINE NEGATIVE (NEG); CLARITY,URINE CLEAR; COLOR,URINE YELLOW; NITRITE,URINE NEGATIVE (NEG); PROTEIN,URINE NEGATIVE (NEG-TRACE); UROBILINOGEN,URINE 0.2 mg/dL (0.2 mg/dL)
[2021-08-26 17:28] LABS: BACTERIA,URINE 0 /HPF (0-FEW)
[2021-08-26] MEDS ORDERED: MORPHINE SULFATE 4 MG/ML INJ. IVP ONE (18:00)
[2021-08-26 18:16] VITALS: BP 120/71
--- NOTE | 2021-08-27 01:39 | EKG ---
[facility] [address] [place] [address] Test Date: 2021-08-26 Test Time: 13:33:31 Pat Name: LENNIE LINK Department: Room: Gender: M Lam[employer] Floor [employer]er: : 1955 Requested By: AGUILAR BUENO Order Number: [id number] Reading MD: Measurements Intervals [place] Rate: 83 P: 48 MO: 176 QRS: -13 QRSD: 94 T: 15 QT: 382 QTc: 455 Interpretive Statements SINUS RHYTHM LEFTWARD AXIS OTHERWISE NORMAL ECG RI6.02 No previous ECG available for comparison
== END 2021-08-26 18:34 | disposition home or self-care (01) ==
LOC: ER 13:15
DX: R56.9 Unspecified convulsions (principal); I10 Essential (primary) hypertension; F03.90 Unspecified dementia, unspecified severity, without behavioral disturbance, psychotic disturbance, mood disturbance, and anxiety
CPT/HCPCS: 36415; 70450; 71045; 72125; 73502; 80053; 80164; 81001; 82553; 83880; 84484; 85025; 93005; 96374; 96375; 96376; 99285; G0480; J2270; J2405; J3010